=== PATIENT | male | born 1990 | race Caucasian/White ===

== ENCOUNTER 2017-09-20 18:26 | Emergency (ER) | payer SELFPAY ==
[~2017-09-20] VITALS: Ht 180.3 cm; Wt 79.4 kg
[2017-09-20] MEDS ORDERED: NKM (19:34)
[2017-09-20 20:20] VITALS: BP 129/89
[2017-09-20] MEDS ORDERED: Tetanus/Diptheria/Pertussis Vaccine 0.5ml Syr IM ONE (20:30)
[2017-09-20] MEDS ORDERED: ceFAZolin sod 2 GM in NS 55 ML IVP ONE (21:15)
[2017-09-20] MEDS ORDERED: ceFAZolin 2gm/50ml Premix 50 ML IVPB ONE (21:15)
[2017-09-20] MEDS ORDERED: ceFAZolin sod 1 GM in NS 55 ML IVP ONE (21:15)
[2017-09-20] MEDS ORDERED: ceFAZolin 1gm/50ml Premix 50 ML IV ONE (21:15)
[2017-09-20] MEDS ORDERED: CEPHALEXIN500 MG ORAL (21:55)
[2017-09-20] MEDS ORDERED: BACTRIM DS TAB1 EAC1 ORAL (21:55)
--- NOTE | 2017-09-20 21:55 | Emergency Room Report ---
History of Present Illness General Chief Complaint: General Complaint Source: Patient Present Illness HPI 27 yo male patient presents to ER complaining of arm pain for a few hours. Patient reports was shooting up meth when the needle broke in his arm. Patient reports hx of using meth. Reports tried to "dig" the needle out himself. Patient reports swelling and tenderness at site of injury. Reports bleeding, wrapped arm in plastic to prevent from bleeding. Denies loss of ROM of arm. Denies chest pain, SOB, abdominal pain, fever. Allergies: Coded Allergies: No Known Allergies (Unverified , 09/20/17) Patient History Past Medical History: see triage record Reviewed Nursing Documentation: PMH: Agreed, PSxH: Agreed Nursing Documentation-PMH Past Medical History: No Stated History Review of Systems All Other Systems: negative except mentioned in HPI Physical Exam Vital Signs Date Time Temp Pulse Resp B/P (MAP) Pulse Ox O2 Delivery O2 Flow Rate FiO2 09/20/17 19:29 98.6 129 20 136/76 97 98.6 Sp02 EP Interpretation: reviewed, normal General Appearance: well appearing, no apparent distress, alert, GCS 15, non- toxic Head: normocephalic, atraumatic Eyes: bilateral eye normal inspection, bilateral eye PERRL ENT: hearing grossly normal, normal pharynx, no angioedema, normal voice, uvula midline, moist mucus membranes Neck: full range of motion Respiratory: lungs clear, normal breath sounds, no rhonchi, no respiratory distress, no accessory muscle use, no wheezing, speaking full sentences Cardiovascular #1: regular rate, rhythm, no edema Musculoskeletal: back normal, digits/nails normal, gait/station normal, normal range of motion, non-tender, other - NVI Psychiatric: mood/affect normal Skin: laceration - right antecubital space: 4 superifical lacerations in apple shape with superificial layer of tissue missing at distal point, bleeding, TTP, indurated Lymphatic: no adenopathy Medical Decision Making PA Attestation Dr. Ware is my supervising Physician whom patient management has been discussed with. Diagnostic Impression: Primary Impression: Foreign body (FB) in soft tissue Additional Impression: Drug use ER Course Pt presents to ED c/o broken needle in right arm. DDX considered but are not limited to laceration, abrasion, contusion, cellulitis. VITAL SIGNS are WNL, patient is afebrile PE shows apple shaped laceration where patient attempted to cut needle out of his own arm. Reports "began to feel queasy" and decided to come to ER. Ordered xray to visualize needle, lidocaine, and TDAP. ED INTERVENTIONS: Patient resting comfortably, eating [employer]. Wound was cleaned and irrigated using normal saline. TDAP provided to patient. Keflex provided to patient. Local block performed with Lidocaine, US used to visualize needle. Local exploration. Unable to find needle. Consult Dr. Ware. Contact surgery operation agent. Consult Dr. Ga from surgery. Procedure to remove needle performed by him in ER. See Dr. Ga procedure note. Will treat with abx. Patient reports understanding and agreement to treatment plan. DISCHARGE: Rx provided for Keflex Rx provided for Bactrim to cover MRSA. Rx provided for Tylenol At this time pt is stable for d/c to home. Patient resting comfortably, in no acute distress, nontoxic appearing, talking without difficulty. Will provide with patient care instructions and any necessary prescriptions. Patient to take medication as instructed. Care plan and follow-up instructions provided. Work note provided to patient. Patient questions asked and answered. Patient instructed to follow-up with Dr. Ga at scheduled appointment. Patient agrees. Patient instructed to followup with PCP to discuss further treatment plan. Patient instructed to avoid drug use. ER precautions given. Patient instructed to return to ER immediately for any new or worsening of symptoms. Other X-Ray Diagnostic Results Other X-Ray Diagnostic Results : X-Ray ordered: right elbow # of Views/Limited Vs Complete: 3 View Indication: Pain EP Interpretation: Yes PA Xray: Interpretation reviewed, by supervising MD, and agrees with findings. Interpretation: no dislocation, no soft tissue swelling, no fractures, other - Broken off needle tips in in the anterior distal upper arm soft tissues Impression: No acute disease PJ Scribe Text Arden Richter PA-C Last Vital Signs Date Time Temp Pulse Resp B/P (MAP) Pulse Ox O2 Delivery O2 Flow Rate FiO2 09/20/17 19:29 98.6 129 20 136/76 97 98.6 Disposition: HOME, SELF-CARE Condition: Stable Scripts Acetaminophen* (TYLENOL EXTRA STRENGTH*) 500 Mg Tablet 500 MG ORAL Q8H Y for Prn Headache/Temp > 101, #30 TAB 0 Refills Prov: Ar Richter 09/20/17 Trimethoprim/Sulfamethoxazole 160/800* (BACTRIM DS TABLET*) 1 Each Tablet 1 TAB ORAL TWICE A DAY for 7 Days, #14 TAB Prov: Ar Richter 09/20/17 Cephalexin* (KEFLEX*) 500 Mg Capsule 500 MG ORAL EVERY 6 HOURS for 7 Days, #14 CAP Prov: Ar Richter 09/20/17 Referrals: NOT CHOSEN IPA/,REFERRING (PCP) Patient Instructions: Cellulitis, [id number], Laceration Care, Adult, Easy-to -Read, Substance Use Disorder Additional Instructions: Followup with Dr. Ga in his office at scheduled appointment. Do not use drugs or inject drugs into arms. Take medications as directed. Complete full course of antibiotics. Patient questions asked and answered. ER precautions given, patient instructed to return to ER immediately for any new or worsening of symptoms. Ar Richter Sep 20, 2017 21:55
[2017-09-20] MEDS ORDERED: Lidocaine 1% 10mg/ml/EPI 0.01mg/ml 50ml INJ ONE (21:56)
[2017-09-20] MEDS ORDERED: Lidocaine 1% Plain 30 ml INJ ONE (22:00)
[2017-09-20] MEDS ORDERED: Lidocaine 1% 10mg/ml/Epi 0.005mg/ml 30ml vial INJ ONE (22:00)
[2017-09-20] MEDS ORDERED: TYLENOL EXTRA500 MG ORAL (23:10)
--- NOTE | 2017-09-20 23:43 | Consultation ---
History of Present Illness General Date patient seen: Sep 20, 2017 Chief Complaint: General Complaint Reason for Consultation: broken needle in right arm Present Illness HPI 27M with history of IVDA was using earlier this afternoon when he could not find a vein in his right arm, became frustrated, and resulted in breaking a 30g needle into his right arm. Initially he attempted to cut open area around needle stick to remove needle but after making a elliptical incision and partially opening it he decided to stop and come to ED for evaluation. Surgery called to evaluate. Plain films identified needle superficial in right arm. otherwise well. Allergies: Coded Allergies: No Known Allergies (Unverified , 09/20/17) Medication History Scheduled Cephalexin* (Keflex*), 500 MG ORAL EVERY 6 HOURS No Known Medications* (NKM - No Known Medications*), 0 ., (Reported) Trimethoprim/Sulfamethoxazole 160/800* (Bactrim Ds Tablet*), 1 TAB ORAL TWICE A DAY Scheduled PRN Acetaminophen* (Tylenol Extra Strength*), 500 MG ORAL Q8H PRN for Prn Headache/ Temp > 101 Patient History History Provided By: Patient, Medical Record Healthcare decision maker Resuscitation status Advanced Directive on File Past Medical/Surgical History Past Medical/Surgical History: (1) Drug use (2) Foreign body (FB) in soft tissue Review of Systems Constitutional: Denies: no symptoms, see HPI, chills, sweats, fever, malaise, weakness, other Eye: Denies: no symptoms, see HPI, eye pain, blurred vision, tearing, double vision, nose pain, nose congestion, acuity changes, discharge, other ENT: Denies: no symptoms, see HPI, ear pain, ear discharge, nose pain, nose congestion, throat pain, throat swelling, mouth pain, hearing loss, nasal discharge, other Respiratory: Denies: no symptoms, see HPI, cough, orthopnea, shortness of breath, stridor, wheezing, GLEZ, sputum, other Cardiovascular: Denies: no symptoms, see HPI, chest pain, edema, palpitations, syncope, PND, other Gastrointestinal: Denies: no symptoms, see HPI, abdominal pain, constipation, diarrhea, nausea, vomiting, melena, hematemesis, other Genitourinary: Denies: no symptoms, see HPI, discharge, dysuria, frequency, hematuria, pain, retention, incontinence, urgency, vag bleed/dc, other Musculoskeletal: Denies: no symptoms, see HPI, back pain, gout, joint pain, joint swelling, muscle pain, muscle stiffness, other Skin: Denies: no symptoms, see HPI, rash, change in color, change in hair/nails , dryness, lesions, other Psychiatric: Denies: no symptoms, see HPI, prior hx, anxiety, depressed feelings, emotional problems, SI, HI, hallucinations, other Neurological: Denies: no symptoms, see HPI, headache, numbness, paresthesia, seizure, tingling, tremors, focal weakness, syncope, dizziness, other Endocrine: Denies: no symptoms, see HPI, excessive sweating, flushing, intolerance to temperature, increased thirst, increased urine, unexplained weight loss, other Hematologic/Lymphatic: Denies: no symptoms, see HPI, anemia, blood clots, easy bleeding, easy bruising, swollen glands, diathesis, other Physical Exam General Appearance: no apparent distress, alert Lines, tubes and drains: peripheral HEENT: normocephalic, mucous membranes moist, PERRL Neck: normal alignment, supple Respiratory/Chest: chest wall non-tender, lungs clear, normal breath sounds, no respiratory distress, no accessory muscle use Cardiovascular/Chest: normal peripheral pulses, normal rate Abdomen: normal bowel sounds, non tender, soft, no organomegaly, no mass Extremities: other - right upper arm just proximal to the AC fossa there is a home made self inflicted 4cm elliptical incision with only partial flap raised on the distal aspect. multiple lacerations noted within the area as noted from history of trying to remove FB himself. Skin Exam: normal pigmentation Neurologic: alert, oriented x 3, responsive Last 24 Hour Vital Signs Date Time Temp Pulse Resp B/P (MAP) Pulse Ox O2 Delivery O2 Flow Rate FiO2 09/20/17 19:29 98.6 129 20 136/76 97 98.6 Height (Feet): 5 Height (Inches): 11.00 Weight (Pounds): 175 Assessment/Plan Problem List: (1) Foreign body (FB) in soft tissue Assessment & Plan: plain films noted FB in right arm. area of patients self inflicted incision noted. discussed care with patient he expressed desire to attempt removal of FB. given his incisions would need washout and repair as well. discussed risks, benefits, and alternatives with patient. with how wound is currently there is high risk for infection. will plan washout, cleaning, debridement of tissues, and exploration for FB -see procedure report -keep wound clean follow up with me this wednesday for wound check. rx written consent obtained. ICD Codes: M79.5 - Residual foreign body in soft tissue SNOMED: [id number] Status: stable LyleCole pace Sep 20, 2017 23:43
[2017-09-21] MEDS ORDERED: Cephalexin 500mg cap ORAL ONE
[2017-09-21] MEDS ORDERED: Cephalexin 500mg cap ONE (00:14)
[2017-09-21 00:19] VITALS: BP_SYST 129; BP_SYST 132; BP_DIAS 79; BP_DIAS 89
--- NOTE | 2017-09-21 10:53 | Diagnostic Imaging Report ---
Indications:Pain, blistering, broken needle during IV drug injection Technique: Three or 4 views of the right elbow Comparison: None Findings: Linear metallic foreign body, likely broken needle tip, seen in the anterior soft tissues anterior to the distal humerus. This is fairly superficial. No acute fractures. No dislocations. The joint spaces are preserved. No effusion Impression: Broken off needle tips in in the anterior distal upper arm soft tissues No significant osseous abnormality This agrees with the impression of the ED physician reported in the electronic medical record
== END 2017-09-21 00:19 | disposition home or self-care (01) ==
LOC: EMR 20:07
DX: M79.5 Residual foreign body in soft tissue (principal); Z23 Encounter for immunization; F15.90 Other stimulant use, unspecified, uncomplicated
CPT/HCPCS: 80299; 90471; 90715; 99284